=== PATIENT | male | born 1970 | race Caucasian/White ===

== ENCOUNTER 2023-12-06 08:45 | Day surgery (SDC) | payer OTHER ==
[~2023-12-06] VITALS: Ht 175.3 cm; Wt 72.6 kg
[2023-12-06] MEDS: MIDAZOLAM 2 MG/2 ML VIAL ONE (12:53)
[2023-12-06] MEDS: fentaNYL citrate 0.05 MG/ML VIAL ONE (12:54)
[2023-12-06] MEDS ORDERED: MIDAZOLAM 2 MG/2 ML VIAL IVP ONE (13:30)
[2023-12-06] MEDS ORDERED: fentaNYL citrate 0.05 MG/ML VIAL IVP ONE (13:30)
== END 2023-12-06 14:35 | disposition home or self-care (01) ==
LOC: MDS 08:45 → MMU 08:55 → MDS 14:35
PROVIDERS: ATTEND Internal Medicine Gastroenterology
DX: R13.10 Dysphagia, unspecified (principal); K21.9 Gastro-esophageal reflux disease without esophagitis; I10 Essential (primary) hypertension; E11.9 Type 2 diabetes mellitus without complications; Z90.89 Acquired absence of other organs; Z98.890 Other specified postprocedural states
CPT/HCPCS: 43239; 82948; 88305; J2250; J3010